=== PATIENT | female | born 1995 | race Caucasian/White ===

== ENCOUNTER → 2018-08-31 14:45 | Outpatient (CLI) | payer BC, SELFPAY ==
[2018-08-31 16:59] LABS: HCG Quantitative /Beta subunit 4859.5 mIU/mL
== END ==
PROVIDERS: Visit Provider Obstetrics & Gynecology
DX: N91.2 Amenorrhea, unspecified (principal)
CPT/HCPCS: 36415; 84702

== ENCOUNTER 2018-09-03 23:35 | Observation (INO) | payer BC, SELFPAY ==
--- NOTE | 2018-09-03 23:50 | ED.FEMALEGU ---
HPI - Female Genitourinary General Chief complaint: OB/Uterine Contractions Stated complaint: CRAMPING X3 WEEKS Time Seen by Provider: 09/03/18 23:50 Source: patient Mode of arrival: ambulatory Limitations: no limitations History of Present Illness HPI Narrative: 23-year-old female, at 4 weeks presents with significant other and chief complaint of 2 hr of severe pelvic pain earlier tonight. She denies any vaginal bleeding, dysuria or other vaginal discharge. She felt dizzy and lightheaded when the pain was severe but is now essentially at baseline. She denies nausea, vomiting or diarrhea. HCG a few days ago was 4800. Related Data Home Medications Medication Instructions Recorded Confirmed No Known Home Medications 09/04/18 09/04/18 Review of Systems Review of Systems All systems reviewed & are unremarkable except as noted in HPI and below Constitutional Denies chills, Denies fever(s), Denies lethargy and Denies weakness Eyes Denies change in vision, Denies eye discharge, Denies irritation and Denies loss of vision ENT Ears, Nose, Mouth, and Throat: Denies change in voice, Denies neck pain and Denies sore throat Cardiovascular Denies chest pain, Denies irregular heart rhythm, Denies lightheadedness, Denies palpitations, Denies dyspnea, Denies dyspnea on exertion and Denies orthopnea Respiratory Denies cough, Denies dyspnea, Denies dyspnea on exertion and Denies wheezing Gastrointestinal Gastrointestinal: Denies abdominal pain, Denies change in bowel habits, Denies diarrhea, Denies nausea and Denies vomiting Genitourinary Denies hematuria, Denies flank pain, Denies urinary incontinence and Denies urinary urgency Musculoskeletal Denies neck pain Integumentary/Breasts Denies pruritus, Denies erythema, Denies rash and Denies wounds Neurologic Denies confusion, Denies loss of vision and Denies weakness Psychiatric Denies anxiety, Denies confusion, Denies depression, Denies homicidal ideation and Denies suicidal ideation Endocrine Denies palpitations Hematologic/Lymphatic Denies easy bruising Allergic/Immunologic Denies wheezing PFSH Social History Smoking Status: Never smoker Exam Narrative Exam Narrative: GENERAL: This is a well-nourished, well-developed patient, in mild distress. HEAD: Atraumatic. Normocephalic. No temporal or scalp tenderness. EYES: Pupils equal round and reactive. Extraocular motions intact. No scleral icterus. No injection or drainage. ENT: Nose without bleeding, purulent drainage or septal hematoma. Throat without erythema, tonsillar hypertrophy or exudate. Uvula midline. Airway patent. NECK: Trachea midline. No JVD or lymphadenopathy. Supple, nontender, no meningeal signs. CARDIOVASCULAR: Regular rate and rhythm without murmurs, gallops, or rubs. RESPIRATORY: Clear to auscultation. Breath sounds equal bilaterally. No wheezes, rales, or rhonchi. GASTROINTESTINAL: Abdomen soft, non-tender, nondistended. No hepato-splenomegaly, or palpable masses. No guarding. EXTREMITIES: No clubbing, cyanosis, or edema. No joint tenderness, effusion, or edema noted. BACK: Nontender without deformity or crepitance. No flank tenderness. NEURO: AOx3. SKIN: No rash or erythema. Initial Vital Signs Initial Vital Signs: Vital Signs Temperature 98.4 F 09/03/18 23:59 Pulse Rate 73 09/03/18 23:59 Respiratory Rate 15 09/03/18 23:59 Blood Pressure 121/61 09/03/18 23:59 Pulse Oximetry 100 09/03/18 23:59 Course Orders Ordered: ED Orders 09/03/18 23:56 Complete Blood Count AUTO DIFF Stat Comprehensive Metabolic Panel Stat Test Serum,Qual Stat 09/03/18 23:57 US pelvic complete Stat 09/04/18 00:20 HCG Quantitative Stat 09/04/18 00:30 Type and Screen Stat Consultations Consultation #1: call to Dr. Godwin (supersonic engineer OB) to discuss case. She consults with Dr. Donovan whom recommends admission and repeat H/H. Dr. Godwin suggests patient be admitted to OBS and Dr. Rai's service. No IV fluids ordered. Vital Signs - 8 hr 09/03/18 23:59 09/04/18 02:41 Temperature 98.4 F Pulse Rate 73 96 H Respiratory Rate 15 16 Blood Pressure 121/61 Blood Pressure [Left Arm] 122/70 Pulse Oximetry 100 98 MDM - Female Genitourinary Differential Diagnosis Likely ovarian cyst and ruptured ovarian cyst Lab Data Result diagrams: 09/04/18 00:30 09/04/18 00:30 Lab Results 09/04/18 09/04/1809/04/18 Range/Units 00:20 00:30 00:30 WBC 12.1 H (4.5-11.0) X10^3/uL RBC 4.25 (4.0-5.2) X10^6/uL Hgb 13.1 (12.0-16.0) g/dL Hct 37.0 (36-46) % MCV 87.1 (80-100) fL MCH 30.8 (26-34) PG MCHC 35.3 (30-36) % RDW 12.6 (11.6-14.8) % Plt Count 329 (150-400) X10^3/uL Neut % (Auto) 80.9 H (50-75) % Lymph % (Auto) 12.1 L (25-40) % [place] % (Auto) 6.1 (3-14) % Eos % (Auto) 0.3 L (2-4) % Baso % (Auto) 0.6 (0-2) % Neut # (Auto) 9800 H (7611-5596) /uL Sodium 142 (137-145) mmol/L Potassium 3.7 (3.4-5.1) mmol/L Chloride 105 (98-107) mmol/L Carbon Dioxide 22 (22-32) mmol/L BUN 14 (7-17) mg/dL Creatinine 0.70 (0.52-1.04) mg/dL Estimated GFR > 60.0 (>60) mL/min BUN/Creatinine Ratio 20.0 (6-22) Glucose 105 H (70-100) mg/dL Calcium 9.4 (8.4-10.2) mg/dL Total Bilirubin 0.2 (0.2-1.3) mg/dL AST 17 (14-36) IU/L ALT 24 (9-52) IU/L Alkaline Phosphatase 55 (38-126) U/L Total Protein 7.7 (6.3-8.2) g/dL Albumin 4.8 (3.5-5.0) g/dL Globulin 2.9 (1.7-4.1) g/dL Albumin/Globulin Ratio 1.7 (1.0-2.8) HCG, Quant 4207.4 mIU/mL Serum , Qual (Negative) Blood Type Antibody Screen 09/04/18 09/04/18 Range/Units 00:30 00:30 WBC (4.5-11.0) X10^3/uL RBC (4.0-5.2) X10^6/uL Hgb (12.0-16.0) g/dL Hct (36-46) % MCV (80-100) fL MCH (26-34) PG MCHC (30-36) % RDW (11.6-14.8) % Plt Count (150-400) X10^3/uL Neut % (Auto) (50-75) % Lymph % (Auto) (25-40) % [place] % (Auto) (3-14) % Eos % (Auto) (2-4) % Baso % (Auto) (0-2) % Neut # (Auto) (9566-6585) /uL Sodium (137-145) mmol/L Potassium (3.4-5.1) mmol/L Chloride (98-107) mmol/L Carbon Dioxide (22-32) mmol/L BUN (7-17) mg/dL Creatinine (0.52-1.04) mg/dL Estimated GFR (>60) mL/min BUN/Creatinine Ratio (6-22) Glucose (70-100) mg/dL Calcium (8.4-10.2) mg/dL Total Bilirubin (0.2-1.3) mg/dL AST (14-36) IU/L ALT (9-52) IU/L Alkaline Phosphatase (38-126) U/L Total Protein (6.3-8.2) g/dL Albumin (3.5-5.0) g/dL Globulin (1.7-4.1) g/dL Albumin/Globulin Ratio (1.0-2.8) HCG, Quant mIU/mL Serum , Qual Positive H (Negative) Blood Type A Negative Antibody Screen Negative Point of Care Testing Test Results Positive Urine Dip Bedside Urine Glucose Negative Bedside Urine Bilirubin - Negative Bedside Urine Ketone - Negative Urine Specific [place] 1.015 Bedside Urine Occult Blood - Negative Bedside Urine pH 6.0 Bedside Urine Protein - Negative Bedside Urine Urobilinogen - Negative Bedside Urine Nitrite - Negative Bedside Urine Leukocytes - Negative Esterase Imaging Data US - abdomen: Radiologist's impression: suspect moderate amount of blood in cul-de-sac and adnexa greater on R than L. No IUP noted. Findings suggest ectopic until proven otherwise Discharge Plan Departure Patient Disposition: Admitted as Observation Clinical Impression: Pelvic pain, Admit Date/Time: 09/04/18 02:47 Admit Provider: Flora Donovan
--- NOTE | 2018-09-03 23:57 | DI.US.S_ITS ---
PROCEDURE: US PELVIC COMPLETE INDICATIONS: , pelvic pain TECHNIQUE: Real-time scanning was performed of the pelvic organs, with image documentation. Additional endovaginal scanning was necessary due to incomplete visualization of the adnexal and endometrial structures by transabdominal scanning. COMPARISON: None. FINDINGS: Transabdominal scanning: Limited scanning through the kidneys shows no hydronephrosis. Endovaginal scanning: Moderate echogenic free fluid within the cul-de-sac and within the bilateral adnexal regions. Uterus: Uterus is normal in size at 9.0 x 3.0 x 5.2 cm. The endometrium measures 11 mm in combined thickness. No intrauterine Ovaries: Ruptured right ovarian cyst measuring 20 mm. Left ovary within normal limits. Left adnexa not well-seen. IMPRESSION: 1. Moderate echogenic free fluid within the pelvis, indicating hemorrhage. 2. No intrauterine ; ectopic may be present. 3. Concordant with preliminary interpretation. Dictated by: Carlito Kirk M.D. on 09/04/2018 at 9:51 Approved by: Carlito Kirk M.D. on 09/04/2018 at 10:02
[2018-09-03 23:59] VITALS: BP 121/61; PULSE 73; RESP 15; TEMP 36.9; O2SAT 100; BMI 22.1
[2018-09-04] VITALS (16 sets, daily range): BP systolic 98–134; BP diastolic 53–76; PULSE 41–119; RESP 11–22; TEMP 36.3–37.1; O2SAT 94–100; BMI 22.1
--- NOTE | 2018-09-04 | PATH_ITS ---
[facility] Accession Number: [id number] . 01 Material submitted: . PART A: PERITONEAL BIOPSY PART B: PRODUCTS OF CONCEPTION . 01 Clinical history: . B: POSSIBLE PRODUCTS OF CONCEPTION . 02 Diagnosis: A. Peritoneum, Biopsy: Endometriosis. No evidence of malignancy. . B. Products of Conception: Few chorionic villi present. . MRV/09/08/2018 . 02 Electronically signed: . Figueroa Berger MD, PhD, Pathologist NPI- [id number] . 01 Gross description: . Received two formalin-filled containers, both labeled with the patient's name: . A. In a container labeled peritoneal, the specimen consists of a 0.9 x 0.8 x 0.5 cm, light yellow-mckeon portion of tissue, which is inked, trisected, and totally submitted in cassette A. B. In a container labeled possible products of conception, the specimen consists of multiple fragments of red-brown tissue and clotted blood which aggregate to 1.3 x 1.0 x 0.3 cm. The specimen is entirely submitted in cassette B. No grossly recognizable parts are observed. (DC:[id number]) /FRR . 02 Microscopic: . A. Sections are of peritoneal wall expanded by cystic structures with a columnar variably ciliated epithelium. The underlying stroma is compatible with endometrial stroma. To further evaluate the cystic structures, a CD10 immuonstain is performed, which is strongly and diffusely positive in the stromal component, consistent with endometriosis. . * This test was developed and its performance characteristics determined by [facility]. It has not been cleared or approved by the U.S. Food and Drug Administration. The FDA has determined that such clearance or approval is not necessary. This test is used for clinical purposes. It should not be regarded as investigational or for research. . 02 Pathologist provided ICD-10: N80.9 . 02 CPT . 354120, 829793, [id number] Performed at: 01 [facility] [address] [place] [address], [place], [place] [id number] MD Rusty Castro MD Phone: [phone] Performed at: 02 [facility] [id number] [place], [place] [id number] MD Nicole Simmons MD Phone: [phone]
--- NOTE | 2018-09-04 00:16 | ED_ITS ---
HPI - Female Genitourinary General Chief complaint: OB/Uterine Contractions Stated complaint: CRAMPING X3 WEEKS Time Seen by Provider: 09/03/18 23:50 Source: patient Mode of arrival: ambulatory Limitations: no limitations History of Present Illness HPI Narrative: 23-year-old female, at 4 weeks presents with significant other and chief complaint of 2 hr of severe pelvic pain earlier tonight. She denies any vaginal bleeding, dysuria or other vaginal discharge. She felt dizzy and lightheaded when the pain was severe but is now essentially at baseline. She denies nausea, vomiting or diarrhea. HCG a few days ago was 4800. Related Data Home Medications Medication Instructions Recorded Confirmed No Known Home Medications 09/04/18 09/04/18 Review of Systems Review of Systems All systems reviewed & are unremarkable except as noted in HPI and below Constitutional Denies chills, Denies fever(s), Denies lethargy and Denies weakness Eyes Denies change in vision, Denies eye discharge, Denies irritation and Denies loss of vision ENT Ears, Nose, Mouth, and Throat: Denies change in voice, Denies neck pain and Denies sore throat Cardiovascular Denies chest pain, Denies irregular heart rhythm, Denies lightheadedness, Denies palpitations, Denies dyspnea, Denies dyspnea on exertion and Denies orthopnea Respiratory Denies cough, Denies dyspnea, Denies dyspnea on exertion and Denies wheezing Gastrointestinal Gastrointestinal: Denies abdominal pain, Denies change in bowel habits, Denies diarrhea, Denies nausea and Denies vomiting Genitourinary Denies hematuria, Denies flank pain, Denies urinary incontinence and Denies urinary urgency Musculoskeletal Denies neck pain Integumentary/Breasts Denies pruritus, Denies erythema, Denies rash and Denies wounds Neurologic Denies confusion, Denies loss of vision and Denies weakness Psychiatric Denies anxiety, Denies confusion, Denies depression, Denies homicidal ideation and Denies suicidal ideation Endocrine Denies palpitations Hematologic/Lymphatic Denies easy bruising Allergic/Immunologic Denies wheezing PFSH Social History Smoking Status: Never smoker Exam Narrative Exam Narrative: GENERAL: This is a well-nourished, well-developed patient, in mild distress. HEAD: Atraumatic. Normocephalic. No temporal or scalp tenderness. EYES: Pupils equal round and reactive. Extraocular motions intact. No scleral icterus. No injection or drainage. ENT: Nose without bleeding, purulent drainage or septal hematoma. Throat without erythema, tonsillar hypertrophy or exudate. Uvula midline. Airway patent. NECK: Trachea midline. No JVD or lymphadenopathy. Supple, nontender, no meningeal signs. CARDIOVASCULAR: Regular rate and rhythm without murmurs, gallops, or rubs. RESPIRATORY: Clear to auscultation. Breath sounds equal bilaterally. No wheezes , rales, or rhonchi. GASTROINTESTINAL: Abdomen soft, non-tender, nondistended. No hepato-splenomegaly , or palpable masses. No guarding. EXTREMITIES: No clubbing, cyanosis, or edema. No joint tenderness, effusion, or edema noted. BACK: Nontender without deformity or crepitance. No flank tenderness. NEURO: AOx3. SKIN: No rash or erythema. Initial Vital Signs Initial Vital Signs: Vital Signs Temperature 98.4 F 09/03/18 23:59 Pulse Rate 73 09/03/18 23:59 Respiratory Rate 15 09/03/18 23:59 Blood Pressure 121/61 09/03/18 23:59 Pulse Oximetry 100 09/03/18 23:59 Course Orders Ordered: ED Orders 09/03/18 23:56 Complete Blood Count AUTO DIFF Stat Comprehensive Metabolic Panel Stat Test Serum,Qual Stat 09/03/18 23:57 US pelvic complete Stat 09/04/18 00:20 HCG Quantitative Stat 09/04/18 00:30 Type and Screen Stat Consultations Consultation #1: call to Dr. Godwin (transcriptionist OB) to discuss case. She consults with Dr. Donovan whom recommends admission and repeat H/H. Dr. Godwin suggests patient be admitted to OBS and Dr. Rai's service. No IV fluids ordered. Vital Signs - 8 hr 09/03/18 23:59 09/04/18 02:41 Temperature 98.4 F Pulse Rate 73 96 H Respiratory Rate 15 16 Blood Pressure 121/61 Blood Pressure [Left Arm] 122/70 Pulse Oximetry 100 98 MDM - Female Genitourinary Differential Diagnosis Likely ovarian cyst and ruptured ovarian cyst Lab Data Result diagrams: 09/04/18 00:30 09/04/18 00:30 Lab Results 09/04/18 09/04/1809/04/18 Range/Units 00:20 00:30 00:30 WBC 12.1 H (4.5-11.0) X10^3/uL RBC 4.25 (4.0-5.2) X10^6/uL Hgb 13.1 (12.0-16.0) g/dL Hct 37.0 (36-46) % MCV 87.1 (80-100) fL MCH 30.8 (26-34) PG MCHC 35.3 (30-36) % RDW 12.6 (11.6-14.8) % Plt Count 329 (150-400) X10^3/uL Neut % (Auto) 80.9 H (50-75) % Lymph % (Auto) 12.1 L (25-40) % [place] % (Auto) 6.1 (3-14) % Eos % (Auto) 0.3 L (2-4) % Baso % (Auto) 0.6 (0-2) % Neut # (Auto) 9800 H (9107-3635) /uL Sodium 142 (137-145) mmol/L Potassium 3.7 (3.4-5.1) mmol/L Chloride 105 (98-107) mmol/L Carbon Dioxide 22 (22-32) mmol/L BUN 14 (7-17) mg/dL Creatinine 0.70 (0.52-1.04) mg/dL Estimated GFR > 60.0 (>60) mL/min BUN/Creatinine Ratio 20.0 (6-22) Glucose 105 H (70-100) mg/dL Calcium 9.4 (8.4-10.2) mg/dL Total Bilirubin 0.2 (0.2-1.3) mg/dL AST 17 (14-36) IU/L ALT 24 (9-52) IU/L Alkaline Phosphatase 55 (38-126) U/L Total Protein 7.7 (6.3-8.2) g/dL Albumin 4.8 (3.5-5.0) g/dL Globulin 2.9 (1.7-4.1) g/dL Albumin/Globulin Ratio 1.7 (1.0-2.8) HCG, Quant 4207.4 mIU/mL Serum , Qual (Negative) Blood Type Antibody Screen 09/04/18 09/04/18 Range/Units 00:30 00:30 WBC (4.5-11.0) X10^3/uL RBC (4.0-5.2) X10^6/uL Hgb (12.0-16.0) g/dL Hct (36-46) % MCV (80-100) fL MCH (26-34) PG MCHC (30-36) % RDW (11.6-14.8) % Plt Count (150-400) X10^3/uL Neut % (Auto) (50-75) % Lymph % (Auto) (25-40) % [place] % (Auto) (3-14) % Eos % (Auto) (2-4) % Baso % (Auto) (0-2) % Neut # (Auto) (7775-7987) /uL Sodium (137-145) mmol/L Potassium (3.4-5.1) mmol/L Chloride (98-107) mmol/L Carbon Dioxide (22-32) mmol/L BUN (7-17) mg/dL Creatinine (0.52-1.04) mg/dL Estimated GFR (>60) mL/min BUN/Creatinine Ratio (6-22) Glucose (70-100) mg/dL Calcium (8.4-10.2) mg/dL Total Bilirubin (0.2-1.3) mg/dL AST (14-36) IU/L ALT (9-52) IU/L Alkaline Phosphatase (38-126) U/L Total Protein (6.3-8.2) g/dL Albumin (3.5-5.0) g/dL Globulin (1.7-4.1) g/dL Albumin/Globulin Ratio (1.0-2.8) HCG, Quant mIU/mL Serum , Qual Positive H (Negative) Blood Type A Negative Antibody Screen Negative Point of Care Testing Test Results Positive Urine Dip Bedside Urine Glucose Negative Bedside Urine Bilirubin - Negative Bedside Urine Ketone - Negative Urine Specific [place] 1.015 Bedside Urine Occult Blood - Negative Bedside Urine pH 6.0 Bedside Urine Protein - Negative Bedside Urine Urobilinogen - Negative Bedside Urine Nitrite - Negative Bedside Urine Leukocytes - Negative Esterase Imaging Data US - abdomen: Radiologist's impression: suspect moderate amount of blood in cul-de-sac and adnexa greater on R than L. No IUP noted. Findings suggest ectopic until proven otherwise Discharge Plan Departure Patient Disposition: Admitted as Observation Clinical Impression: Pelvic pain, Admit Date/Time: 09/04/18 02:47 Admit Provider: Flora Donovan
[2018-09-04 00:46] LABS: Add Manual Diff / Slide Review NO; Basophils Percent Auto 0.6 % (0-2); Eosinophils Percent Auto 0.3 % (2-4); Hemoglobin 13.1 g/dL (12.0-16.0); Lymphocytes Percent Auto 12.1 % (25-40); Mean Corpuscular HGB Conc 35.3 % (30-36); Mean Corpuscular Hemoglobin 30.8 PG (26-34); Mean Corpuscular Volume 87.1 fL (80-100); Monocytes Percent Auto 6.1 % (3-14); Neutrophils Absolute Auto 9800 /uL (3000-5900); Neutrophils Percent Auto 80.9 % (50-75); Platelet Count 329 X10^3/uL (150-400); Red Blood Cell Count 4.25 X10^6/uL (4.0-5.2); Red Cell Distribution Width 12.6 % (11.6-14.8); White Blood Cell Count 12.1 X10^3/uL (4.5-11.0)
[2018-09-04 00:51] LABS: Pregnancy Test Serum,Qual Positive (Negative)
[2018-09-04 00:55] LABS: Alanine Aminotransferase 24 IU/L (9-52); Albumin 4.8 g/dL (3.5-5.0); Albumin Globulin Ratio 1.7 (1.0-2.8); Alkaline Phosphatase 55 U/L (38-126); Aspartate Aminotransferase 17 IU/L (14-36); Bilirubin Total 0.2 mg/dL (0.2-1.3); Blood Urea Nitrogen 14 mg/dL (7-17); Calcium 9.4 mg/dL (8.4-10.2); Carbon Dioxide 22 mmol/L (22-32); Chloride 105 mmol/L (98-107); Estimated Glomerular Filt Rate > 60.0 mL/min (>60); Globulin 2.9 g/dL (1.7-4.1); Glucose 105 mg/dL (70-100); HEMOLYSIS < 15 (0-50); Potassium 3.7 mmol/L (3.4-5.1); Sodium 142 mmol/L (137-145); Total Protein 7.7 g/dL (6.3-8.2)
[2018-09-04 01:56] LABS: HCG Quantitative /Beta subunit 4207.4 mIU/mL
[2018-09-04] MEDS: HYDROMORPHONE 2 MG INJ 1 MG IV (04:54)
[2018-09-04 05:47] LABS: Hemoglobin 12.2 g/dL (12.0-16.0)
[2018-09-04] MEDS: HYDROMORPHONE 0.5 MG INJ IV (05:57)
--- NOTE | 2018-09-04 08:44 | PM.GYNHP.1 ---
History of Present Illness Reason for admission: ectopic Narrative: Seema Smalls is a 23 year old female With sudden onset of pelvic pain and a starting on 09/03/2018. Prior to the ER visit she had been having some spotting and cramping so had a HCG level drawn that was 4800. With onset of of the pain she presented to the emergency room where she had a HCG level that had decreased to 4200 and ultrasound that did not show a in the uterus, did not show a specific ectopic but free fluid in the pelvis suspicious for internal bleeding. FOR[facility]LY [facility], [facility] Medical History [place] teeth extracted (Acute) Surgical History History of tonsillectomy (Acute) Social History household members: significant other Smoking Status: Never smoker Meds Home Medications Medication Instructions Recorded Confirmed Type No Known Home Medications 09/04/18 09/04/18 History Allergies Allergy/AdvReac Type Severity Reaction Status Date / Time amoxicillin [From Augmentin] Allergy Severe Difficulty Verified 09/04/18 04:33 Breathing clavulanic acid Allergy Severe Difficulty Verified 09/04/18 04:33 [From Augmentin] Breathing codeine Allergy Severe severe Verified 09/04/18 05:04 migraines doxycycline Allergy Severe Difficulty Verified 09/04/18 04:33 Breathing minocycline Allergy Severe Difficulty Verified 09/04/18 04:33 Breathing Penicillins Allergy Severe Difficulty Verified 09/04/18 04:33 Breathing Review of Systems Review of Systems Patient denies any vaginal bleeding. She has severe lower abdominal pain. All systems reviewed & are unremarkable except as noted in HPI and below Exam Vital Signs (past 8 hours): - 09/04/18 02:41 09/04/18 03:45 09/04/18 08:30 Temperature 98.7 F 98.8 F Pulse Rate 96 H 82 78 Respiratory Rate 16 16 16 Blood Pressure 123/66 120/58 L Blood Pressure [Left Arm] 122/70 Pulse Oximetry 98 99 98 Oxygen Delivery Method Room Air Oxygen Flow Rate 0 Narrative Exam Narrative: HEENT exam within normal limits. Lungs are clear to auscultation and percussion. Heart is regular rate and rhythm no S3-S4 or murmurs. Abdomen is soft, with diffuse tenderness more in the lower abdomen. Pelvic exam was not performed. Extremities without edema and nontender. Objective Imaging US - abdomen: Radiologist's impression: No intrauterine gestation. No obvious ectopic . Free fluid in the pelvis. Labs Result Diagrams: 09/04/18 05:21 09/04/18 00:30 Labs: Laboratory Results - last 24 hr 09/04/18 09/04/18 09/04/18 00:20 00:30 00:30 WBC 12.1 H RBC 4.25 Hgb 13.1 Hct 37.0 MCV 87.1 MCH 30.8 MCHC 35.3 RDW 12.6 Plt Count 329 Neut % (Auto) 80.9 H Lymph % (Auto) 12.1 L [place] % (Auto) 6.1 Eos % (Auto) 0.3 L Baso % (Auto) 0.6 Neut # (Auto) 9800 H Sodium 142 Potassium 3.7 Chloride 105 Carbon Dioxide 22 BUN 14 Creatinine 0.70 Estimated GFR > 60.0 BUN/Creatinine Ratio 20.0 Glucose 105 H Calcium 9.4 Total Bilirubin 0.2 AST 17 ALT 24 Alkaline Phosphatase 55 Total Protein 7.7 Albumin 4.8 Globulin 2.9 Albumin/Globulin Ratio 1.7 HCG, Quant 4207.4 Serum , Qual Blood Type Antibody Screen 09/04/18 09/04/18 09/04/18 00:30 00:30 05:21 WBC RBC Hgb 12.2 Hct 34.0 L MCV MCH MCHC RDW Plt Count Neut % (Auto) Lymph % (Auto) [place] % (Auto) Eos % (Auto) Baso % (Auto) Neut # (Auto) Sodium Potassium Chloride Carbon Dioxide BUN Creatinine Estimated GFR BUN/Creatinine Ratio Glucose Calcium Total Bilirubin AST ALT Alkaline Phosphatase Total Protein Albumin Globulin Albumin/Globulin Ratio HCG, Quant Serum , Qual Positive H Blood Type A Negative Antibody Screen Negative Assessment & Plan (1) Pelvic pain: Current visit: Yes Status: Acute (2) : Qualifiers: Weeks of gestation: unspecified Qualified Code(s): Z34.90 - Encounter for supervision of normal , unspecified, unspecified trimester Current visit: Yes Status: Acute Plan: Assessment/Plan Narrative: Patient with possible ectopic . Discussed options with the patient including monitoring, methotrexate, laparoscopic treatment. Patient does not wish to wait to see if her values decrease on their own or treatment with methotrexate if possible. She is aware that an ectopic may not be found on laparoscopy In which case she may eventually need methotrexate. She is aware that removal of the blood may improve her symptoms. Discussed the 25% risk of recurring ectopic with any treatment of ectopic that retains her fallopian tube Such as salpingostomy or methotrexate. Removal of her fallopian tube will slightly decrease her risk of fertility. The risks of laparoscopy were discussed with the patient including damage to bowel, bladder, ureters that may require opening abdomen to repair. There is minimal risk of infection.There is a possibility we may not find the ectopic . Consent form was signed. Patient will be discharged after the procedure. Time Spent With Patient Time with patient: 25 - 35 minutes Quality VTE Deep Vein Thrombosis/Pulmonary Embolism Present on Admission: No
[2018-09-04] MEDS: LACTATED RINGERS 1,000 ML 100 ML IV (09:11)
--- NOTE | 2018-09-04 10:07 | PC.NURSE ---
Day shift: Pt off unit at this time 1000. Surgery. Return ETA 1200. Pt's has all valuables from room.
--- NOTE | 2018-09-04 10:54 | PM.PREOP ---
Pre-operative Note Interval Note Pre-op Check: Yes History & Physical exam performed today by Physician Changes: No
[2018-09-04] MEDS: RHO(D) IMMUNE GLOBULIN 1,500 UNIT SYRINGE 1500 UNIT IM (11:20)
[2018-09-04] MEDS: BUPIVACAINE 0.5% W/ EPI (PF) VIAL 30 ML INJ (11:25)
[2018-09-04] MEDS: METHYLENE BLUE 50 MG/10 ML VIAL 70 MG INJ (11:48)
--- NOTE | 2018-09-04 12:02 | SUR.HOLD ---
Was unable to complete OPD hold prior to receiving PACU patient. Report given to BLUEPRINT ENGINEER and anesthesia. Belly ring removed by patient and given to SO. States that she didn't know how to remove her nose piercings. Dr Leong aware, ok'd leaving them in. RN also made aware. ICU informed that patient would be off tele in the OR.
--- NOTE | 2018-09-04 12:09 | PM.OP.1 ---
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 Closure Type: primary Specimen(s): other ( tissue being extruded from the left fallopian tube, peritoneal biopsies) Estimated Blood Loss (mL): 10 Blood products transfused: none Procedure in detail: Patient was brought to the operating room where she underwent general anesthesia. She was placed in low yellowfin stirrups and prepped and draped in usual sterile fashion. No antibiotics were indicated. Pulsatile stockings were in place and functional. Warming was with blankets. A single-tooth tenaculum was placed on the anterior lip of the cervix and the cervix dilated to #6 Hegar dilator. The Heaven uterine manipulator was placed and balloon inflated with 3 mL of air. The area of the incisions were injected with half percent Marcaine with epinephrine. An incision was made in the umbilicus with a scalpel and the Verres needle placed in the abdomen. Confirmation of correct placement of the needle was performed by withdrawing on the syringe and then allowing fluid to fall freely through the needle. The abdomen was insufflated to 4 L of CO2. A 5 mm trocar was placed under direct visualization. 2 other 5 mm trochars were placed in the right and left lower quadrant under direct visualization after incising the skin. There did not appear to be any damage with placement of the trocars. the tissue being extruded from the left fallopian tube was grasped and sent to pathology. The area of endometriosis in the left broad ligament was grasped and removed with scissors, bleeding controlled with cautery. Adequate hemostasis was noted. Methylene blue was placed through the HEAVEN to confirm patency of the fallopian tubes. The CO2 was allowed to escape from the abdomen. The trochars were removed. Skin was closed with 4-0 Monocryl. The patient went to recovery room in good condition. Complications: none Condition: stable Disposition: same day surgery Plan for aftercare: home when awake and stable, patient will need to be monitored for fall of HCG to 0, will discuss treatment for endometriosis at her postop appointment
[2018-09-04] MEDS: fentaNYL 100 MCG/2 ML INJ 50 MCG IV (12:21)
[2018-09-04] MEDS: MEPERIDINE 50 MG/ML 25 MG IV (12:26)
--- NOTE | 2018-09-04 12:36 | SUR.PHASEI ---
1214 Aroused spontaneously, denies pain/nausea. Resp unlabored, skin warm and dry. 1221 C/O pain & is shaking. Rx given for pain first as ordered. 1230 Shaking subsided prior to completion of medication administration. Patient talking, drowsy, pain improved.
--- NOTE | 2018-09-04 12:39 | SUR.PHASEI ---
1237 SO to bedside, talking with patient. Sips of water given, tolerated well.
--- NOTE | 2018-09-04 12:40 | SUR.PHASEI ---
c/o dry lips, chap stick given
--- NOTE | 2018-09-04 13:06 | SUR.PHASEI ---
1249 To room 210, bed down and locked, call light within reach. Resp unlabored, skin warm and dry. C/o abdominal pain w/grimace. AC RN will obtain orders/medication. RN checked pain/bandaids. VSS. SO to bedside. Report given. No questioins.
[2018-09-04] MEDS: HYDROMORPHONE 1 MG INJ IV (13:17)
[2018-09-04] MEDS: diphenhydrAMINE 25 MG TABLET PO (13:23)
[2018-09-04] MEDS: HYDROCODONE/ACET 5/325 TABLET 2 TAB PO (13:23)
--- NOTE | 2018-09-04 15:00 | CM.DANOTE ---
DCP Assessment: Patient is a 23 yo female admitted for ectopic and underwent surgery today. Met with patient and at the bedside and role of d/c internet media planner explained. PCP: Not on file. Insurance: [facility] Out of [facility] Patient lives [place] with her . She is I at baseline. She does not identify any discharge needs. Plan: Discharge home with .
--- NOTE | 2018-09-04 19:35 | PC.NURSE ---
Lauren shift note: 1700. Patient awake and alert, pain control adequate with [place] PO. Abdominal band aides x 3 CDI. VSS and afebrile. Patient discharged home via private vehicle accompanied by significant other. Ambulatory in room, independent. Discussed importance of F/U in 1 week, pain control medication safety for home use, activity, and s/sx of infection. Patient verbalized understanding of instructions. SL discontinued.
== END 2018-09-04 17:00 | disposition home or self-care (01) ==
LOC: ED 09-04 02:41 → AC 09-04 02:49
PROVIDERS: Admitting Provider Specialist; Emergency Provider Emergency Medicine; Visit Provider Specialist
PROC: (CPT 59150; principal; 2018-09-04 11:00)
DX: O00.102 Left tubal pregnancy without intrauterine pregnancy (principal); R10.2 Pelvic and perineal pain; Z3A.01 Less than 8 weeks gestation of pregnancy; N80.8 Other endometriosis
CPT/HCPCS: 59150; 36415; 36591; 76830; 76856; 80053; 81003; 81025; 84702; 84703; 85014; 85018; 85025; 86850; 86900; 86901; 99282; 99284; G0378; J1100; J1170; J2175; J2405; J2704; J2790; J3010; Q9968

== ENCOUNTER → 2018-09-16 13:08 | Outpatient (CLI) | payer BC, SELFPAY ==
[2018-09-04 04:38] VITALS: BMI 22.1
[2018-09-16 14:26] LABS: HCG Quantitative /Beta subunit 17.28 mIU/mL
== END ==
PROVIDERS: Visit Provider Specialist
DX: O00.109 Unspecified tubal pregnancy without intrauterine pregnancy (principal)
CPT/HCPCS: 36415; 84702

== ENCOUNTER → 2018-09-30 13:52 | Outpatient (CLI) | payer BC, SELFPAY ==
[2018-09-04 04:38] VITALS: BMI 22.1
[2018-09-30 15:23] LABS: HCG Quantitative /Beta subunit < 2.39 mIU/mL
== END ==
PROVIDERS: Visit Provider Specialist
DX: O00.109 Unspecified tubal pregnancy without intrauterine pregnancy (principal)
CPT/HCPCS: 36415; 84702

== ENCOUNTER → 2019-02-04 11:19 | Outpatient (CLI) | payer BC, SELFPAY ==
[2018-09-04 04:38] VITALS: BMI 22.1
[2019-02-04 12:57] LABS: HCG Quantitative /Beta subunit 232.15 mIU/mL
== END ==
PROVIDERS: Visit Provider Specialist
DX: Z34.90 Encounter for supervision of normal pregnancy, unspecified, unspecified trimester (principal); Z3A.01 Less than 8 weeks gestation of pregnancy
CPT/HCPCS: 36415; 84702

== ENCOUNTER → 2019-02-06 11:23 | Outpatient (CLI) | payer BC, SELFPAY ==
[2018-09-04 04:38] VITALS: BMI 22.1
[2019-02-06 12:15] LABS: HCG Quantitative /Beta subunit 535.85 mIU/mL
== END ==
PROVIDERS: Visit Provider Specialist
DX: Z34.90 Encounter for supervision of normal pregnancy, unspecified, unspecified trimester (principal); Z3A.01 Less than 8 weeks gestation of pregnancy
CPT/HCPCS: 36415; 84702

== ENCOUNTER → 2019-03-07 11:49 | Outpatient (CLI) | payer BC, SELFPAY ==
[2018-09-04 04:38] VITALS: BMI 22.1
[2019-03-07 12:30] LABS: Appearance Urine UA CLEAR; Bilirubin Urine UA NEGATIVE (NEGATIVE); Color Urine UA YELLOW; Glucose Urine UA NEGATIVE (Negative); Ketones Urine UA NEGATIVE (NEGATIVE); Leukocyte Esterase Urine UA NEGATIVE (NEGATIVE); Nitrite Urine UA NEGATIVE (Negative); Occult Blood Urine UA TRACE-INTACT (Negative); Protein Urine UA NEGATIVE (Negative); Urobilinogen Urine UA 0.2 E.U./dL (0.2)
[2019-03-07 14:06] LABS: Add Manual Diff / Slide Review NO; Basophils Absolute Auto 0 /uL (0-100); Basophils Percent Auto 0.6 % (0-2); Eosinophils Absolute Auto 100 /uL (0-450); Hematocrit 38.6 % (36-46); Hemoglobin 13.3 g/dL (12.0-16.0); Lymphocytes Absolute Auto 1700 /uL (1100-4500); Lymphocytes Percent Auto 20.7 % (25-40); Mean Corpuscular HGB Conc 34.4 % (30-36); Mean Corpuscular Hemoglobin 30.5 PG (26-34); Mean Corpuscular Volume 88.5 fL (80-100); Monocytes Absolute Auto 600 /uL (0-900); Monocytes Percent Auto 7.7 % (3-14); Neutrophils Absolute Auto 5700 /uL (1500-7000); Platelet Count 301 X10^3/uL (150-400); Red Blood Cell Count 4.36 X10^6/uL (4.0-5.2); Red Cell Distribution Width 12.3 % (11.6-14.8); White Blood Cell Count 8.1 X10^3/uL (4.5-11.0)
[2019-03-07 17:55] LABS: Hepatitis B Surface Antigen NEGATIVE s/c (NEGATIVE)
[2019-03-07 18:13] LABS: HIV 1 and 2 Antibody NEGATIVE (NEGATIVE); Hep C Virus Ab w/Reflex Quant NEGATIVE s/c (NEGATIVE)
[2019-03-09 13:17] LABS: RPR Screen Nonreactive (Nonreactive)
== END ==
PROVIDERS: Visit Provider Specialist
DX: Z34.81 Encounter for supervision of other normal pregnancy, first trimester (principal); Z3A.01 Less than 8 weeks gestation of pregnancy
CPT/HCPCS: 36415; 80055; 81003; 86703; 86787; 86803; 86850; 86900; 86901; 87086

== ENCOUNTER → 2019-05-11 12:00 | Outpatient (CLI) | payer BC, SELFPAY ==
[2019-04-20 14:03] VITALS: BMI 22.1
[2019-05-15 15:24] LABS: B pertussis IGA 2 IU/mL; B pertussis IgG 18 IU/mL
[2019-05-17 12:14] LABS: AFP, Serum 52.6 ng/mL; Calc Gestational Age 17.6; Cigarette Smoker N; Donated Egg NOT GIVEN; Donor Egg Age NOT GIVEN; Estriol, Free 1.75 ng/mL; Inhibin A, Dimeric 74 pg/mL; Maternal Weight 162 lbs; Number of Fetuses 1; Previous Pregnancy Down Syndro NOT GIVEN; hCG, Serum 7.4 IU/mL
== END ==
PROVIDERS: Visit Provider Specialist
DX: R05 Cough (principal); Z34.02 Encounter for supervision of normal first pregnancy, second trimester; Z3A.17 17 weeks gestation of pregnancy
CPT/HCPCS: 36415; 82105; 82677; 84702; 86336; 86615

== ENCOUNTER → 2019-06-02 10:03 | Outpatient (CLI) | payer BC, SELFPAY ==
[2019-04-20 14:03] VITALS: BMI 22.1
--- NOTE | 2019-06-02 10:04 | DI.US.S_ITS ---
PROCEDURE: US OB >= 14 WEEKS FETUS INDICATIONS: ANATOMY OUTSIDE/PRIOR DATING DATA: Last menstrual period (LMP): 01/08/19. LMP-based estimated date of delivery (LAURYN): 10/15/19. First dating scan (date and location): 02/24/19. Estimated date of delivery (LAURYN) from first dating scan: 10/12/19. TECHNIQUE: Real-time scanning was performed of the fetus, with image documentation and biometric measurements. Endovaginal scanning: Not needed for this study. COMPARISON: [facility], , OB >= 14 WEEKS FETUS, 05/11/2019, 11:41. FINDINGS: General: A single living intrauterine gestation is present. Presentation: Vertex Placenta: Placental position is, anterior, without previa. Amniotic fluid index: 12.3 cm, normal range is 5-24 cm. heart rate: 153 beats per minute. Maternal cervical canal: The 3.0 cm long. Normal lower limit is 2.5 cm. biometrics: Biparietal diameter: 5.5 cm, 22 weeks 4 days Head circumference: 19.8 cm, 22 weeks 0 days Abdominal circumference: 17.8 cm, 22 weeks 5 days Femur length: 3.7 cm, 21 weeks 4 days Estimated gestational age from initial scan: 21 weeks 1 day Composite gestational age from present scan: 22 weeks 2 Estimated weight and percentile: 485 g, 93rd percentile Measurement variability for biometric dating: +/- 7 days from 14 weeks to 15 weeks 6 days gestation, +/- 10 days from 16 weeks to 21 weeks 6 days gestation, +/- 2 weeks from 22 weeks to 27 weeks 6 days gestation, +/- 3 weeks for 28 weeks gestation or later. weight reference: 4500 g or EFW >90/95% is considered macrosomia or large for gestational age. EFW <10% is small for gestational age. EFW 5% or less is considered intra-uterine growth restriction. Anatomic survey: Neuro: Ventricles are non-dilated at less than 10 mm. Cisterna magna is normal at 3-11 mm. Cerebellum is normal in size and morphology. Nuchal skin fold: Normal at less than 6 mm between 14-21 weeks gestational age. Face: Nose and lips, facial profile are not well seen due to positioning. Spine: No evidence for spina bifida. Heart: 4-chambered heart is present, with normal ventricular outflow tracts. Diaphragm: Diaphragm is intact. Stomach: Left-sided stomach is present. Kidneys: No hydronephrosis. Normal is less than 5 mm in 2nd trimester, less than 7 mm in 3rd trimester. Cord: 3-vessel cord has orthotopic insertion. Bladder: Normal in size. Extremities: All 4 extremities identified. IMPRESSION: Appropriate interval growth, no anomalies seen. The facial profile and nose/lips area was poorly seen due to positioning. Completion of the anatomic survey could be performed with followup ultrasound in approximately 2 weeks. Dictated by: Leroy Dunn M.D. on 06/02/2019 at 11:51 Approved by: Leroy Dunn M.D. on 06/02/2019 at 11:54
== END ==
PROVIDERS: Visit Provider Specialist
DX: Z34.02 Encounter for supervision of normal first pregnancy, second trimester (principal); Z3A.22 22 weeks gestation of pregnancy
CPT/HCPCS: 76811

== ENCOUNTER → 2019-07-03 13:46 | Outpatient (CLI) | payer BC, SELFPAY ==
[2019-04-20 14:03] VITALS: BMI 22.1
[2019-07-03 15:45] LABS: Hematocrit 34.4 % (36-46)
[2019-07-03 16:29] LABS: GTT (PREG) 1 Hour PP 50gm Dose 63 mg/dL (76-139)
== END ==
PROVIDERS: Visit Provider Specialist
DX: O26.899 Other specified pregnancy related conditions, unspecified trimester (principal); Z34.82 Encounter for supervision of other normal pregnancy, second trimester; Z3A.22 22 weeks gestation of pregnancy; Z67.91 Unspecified blood type, Rh negative
CPT/HCPCS: 36415; 82950; 85014; 85018; 86850

== ENCOUNTER → 2019-09-21 12:44 | Outpatient (CLI) | payer BC, MEDICAID, SELFPAY ==
[2019-04-20 14:03] VITALS: BMI 22.1
[2019-09-22 10:49] LABS: Strep Grp B PCR NEG for Grp B Strep
== END ==
PROVIDERS: Visit Provider Specialist
DX: Z34.93 Encounter for supervision of normal pregnancy, unspecified, third trimester (principal); Z3A.36 36 weeks gestation of pregnancy
CPT/HCPCS: 87653

== ENCOUNTER 2019-10-01 07:18 | Observation (INO) | payer BC, SELFPAY ==
[2019-04-20 14:03] VITALS: BMI 22.1
--- NOTE | 2019-10-01 10:48 | P.TNLD_ITS ---
Visit Information Visit Information Date of evaluation: 10/01/19 Primary OB Provider: Flora Donovan Reason for Evaluation: Yes rule out labor PFSH Medical History (Updated 10/01/19 @ 10:49 by Flora Donovan MD) Ectopic , tubal (Resolved ~09/2018) Pelvic peritoneal endometriosis (Inactive) Surgical History (Updated 09/04/18 @ 04:36 by Rhonda Mathis, JAYE) History of tonsillectomy (Acute) [place] teeth extracted (Acute) Social History household members: significant other Smoking Status: Never smoker Exam Vital Signs (past 8 hours): Blood pressure 122/71, pulse of 88, temperature 36.3? Evaluation Evaluation Baseline heart rate: 140 Variability: Moderate (11-25) monitor accelerations: Present monitor decelerations: Absent Contraction Frequency (minutes): 5 Uterine Contraction Intensity: Moderate Category of Tracing: I Cervical dilation (cm): 2 Cervical effacement (%): 60 station: -2 Diagnosis, Plan/Disposition Final Diagnosis (1) Premature uterine contractions in third trimester, antepartum: Current Visit: Yes Status: Acute Plan/Disposition Plan: Patient qi but no change in cervix likely prodromal labor. OB Disposition: home
[2019-10-01 11:15] VITALS: TEMP 36.4
[2019-10-01] MEDS: MEPERIDINE 50 MG/ML INJ IM (11:15)
== END 2019-10-01 11:30 | disposition home or self-care (01) ==
PROVIDERS: Admitting Provider Specialist; Visit Provider Specialist
DX: O46.93 Antepartum hemorrhage, unspecified, third trimester (principal); Z3A.38 38 weeks gestation of pregnancy; O47.03 False labor before 37 completed weeks of gestation, third trimester
CPT/HCPCS: G0378; G0379; J2175

== ENCOUNTER 2019-10-01 18:46 | Inpatient (IN) | payer BC, MEDICAID, SELFPAY ==
[2019-04-20 14:03] VITALS: BMI 22.1
[2019-10-01 18:55] VITALS: BP 122/71
--- NOTE | 2019-10-01 18:58 | PM.OBHP.1 ---
OB HPI Date/Time Date of admission: 10/01/19 Date Patient Seen: 10/01/19 Time Patient Seen: 19:02 History of Present Condition Chief complaint: eval of labor : 2 Para: 1 Estimated Date of Delivery: 10/15/19 Estimated Gestational Age (weeks): 38 Narrative: Seema Smalls is a 24 year old female in active labor History of Present care: good care, initiated at week # (11), number of visits (11) and pounds weight gain (54) Dating criteria: LMP confirmed by 1st trimester US Obstetrical complications: none Medical complications: none Preadmission Labs Blood type: A (-) negative -: Antibody screen: negative, GBS status: negative, HBsAG: negative, HIV: negative and RPR/VDLR: negative -: Chlamydia screen: not detected and Gonorrhea screen: not detected -: Rubella: immune and Varicella: immune HCAB: negative PAP: Abnormal (ASCUS with positive high-risk HPV) Quad screen: Normal 1 hr GTT: 63 Prior (ies) History: 09/04/2018 ectopic Evaluation Evaluation Baseline heart rate: 140 Variability: Moderate (11-25) monitor accelerations: Present monitor decelerations: Absent Contraction Frequency (minutes): 3 Uterine Contraction Intensity: Strong/Firm Category of Tracing: I Cervical dilation (cm): 6 Cervical effacement (%): 100 station: 0 PFSH Medical History (Updated 10/01/19 @ 10:49 by Flora Donovan MD) Ectopic , tubal (Resolved ~09/2018) Pelvic peritoneal endometriosis (Inactive) Surgical History (Updated 09/04/18 @ 04:36 by Rhonda Mathis RN) History of tonsillectomy (Acute) [place] teeth extracted (Acute) Social History household members: significant other Smoking Status: Never smoker Meds Home Medications and Allergies Home Medications Medication Instructions Recorded Confirmed Type folic acid 400 mcg tablet 0.4 mg PO DAILY 03/07/19 03/07/19 History mecobalamin (vitamin B12) 1,000 1,000 mcg SL DAILY 03/07/19 03/07/19 History mcg disintegrating tablet,sublingual prenat.vits,jose c,fig-fhfu-euvgy 1 tab PO DAILY 03/07/19 03/07/19 History albuterol sulfate 90 mcg/actuation 1 puff INHALATION Q6H PRN #8.5 gram 05/11/19 Rx aerosol inhaler breast pump #1 each 08/02/19 08/02/19 Rx Allergies Allergy/AdvReac Type Severity Reaction Status Date / Time amoxicillin [From Augmentin] Allergy Severe Difficulty Verified 02/24/19 09:28 Breathing clavulanic acid Allergy Severe Difficulty Verified 02/24/19 09:28 [From Augmentin] Breathing codeine Allergy Severe severe Verified 02/24/19 09:28 migraines doxycycline Allergy Severe Difficulty Verified 02/24/19 09:28 Breathing minocycline Allergy Severe Difficulty Verified 02/24/19 09:28 Breathing Penicillins Allergy Severe Difficulty Verified 02/24/19 09:28 Breathing Review of Systems Review of Systems Narrative: Patient had possible leakage of fluid. Good movement. No signs or symptoms of preeclampsia. ROS Unobtainable: All systems reviewed & are unremarkable except as noted in HPI and below Exam Vital Signs (past 8 hours): Blood pressure 142/71, pulse of 112, temperature 35.9? Narrative Exam Narrative: HEENT exam within normal limits. Lungs are clear to auscultation percussion. Heart is regular rate and rhythm no S3-S4 or murmurs. Abdomen is soft, nontender. is vertex. Extremities without edema and nontender Assessment and Plan Assessment and Plan Assessment and Plan narrative: 38 week gestation in active labor. Anticipate vaginal delivery.
[2019-10-01 19:25] LABS: Add Manual Diff / Slide Review NO; Basophils Absolute Auto 100 /uL (0-100); Basophils Percent Auto 0.7 % (0-2); Eosinophils Absolute Auto 100 /uL (0-450); Eosinophils Percent Auto 0.4 % (2-4); Hematocrit 36.9 % (36-46); Hemoglobin 12.7 g/dL (12.0-16.0); Lymphocytes Absolute Auto 2200 /uL (1100-4500); Lymphocytes Percent Auto 15.9 % (25-40); Mean Corpuscular HGB Conc 34.5 % (30-36); Mean Corpuscular Hemoglobin 30.4 PG (26-34); Monocytes Absolute Auto 1200 /uL (0-900); Monocytes Percent Auto 8.7 % (3-14); Neutrophils Absolute Auto 10100 /uL (1500-7000); Neutrophils Percent Auto 74.3 % (50-75); Platelet Count 263 X10^3/uL (150-400); Red Blood Cell Count 4.19 X10^6/uL (4.0-5.2); Red Cell Distribution Width 13.6 % (11.6-14.8); White Blood Cell Count 13.6 X10^3/uL (4.5-11.0)
[2019-10-01] MEDS: OXYTOCIN 10 UNIT/ML VIAL IM (22:06)
--- NOTE | 2019-10-01 22:35 | PM.OBPRVD ---
Labor & Delivery Delivery date: 10/01/19 Intrapartal events: None Induction method: none Delivery monitor: external FHT and external uterine Route of delivery: L&D Laceration Description: None Estimated blood loss (mL): 200 Anesthesia type: None Narrative: Patient arrived on Labor and delivery in active labor. heart tones category 1 to category 2 throughout labor. Patient had a spontaneous vaginal delivery over an intact perineum. The viable male was placed on maternal abdomen. After cord stopped pulsating the cord was clamped, cut, and cord bloods obtained. There were no cervical, vaginal, or perineal tears. Both mother doing well. [place] Baby 1: Infant gender: Male Presentation: vertex position: Right Occiput Anterior Placenta delivery description: Spontaneous cord vessel description: 3 Vessels score (1 min): 8 score (5 min): 9 Plan for aftercare: Routine post vaginal delivery
[2019-10-01] MEDS: KETOROLAC 30 MG/ML VIAL IV (23:07)
[2019-10-02] MEDS: DERMOPLAST SPRAY 20% 60 ML 1 SPRAY TOP (00:39)
[2019-10-02] MEDS: KETOROLAC 30 MG/ML VIAL IV ×3 (05:02→19:02)
[2019-10-02] MEDS: LANOLIN OINT 7 GM 1 APPLIC TOP (05:03)
[2019-10-02 06:47] LABS: Hematocrit 30.9 % (36-46); Hemoglobin 10.5 g/dL (12.0-16.0)
[2019-10-02] MEDS: DOCUSATE 250 MG CAPSULE PO (10:03)
--- NOTE | 2019-10-02 17:09 | PM.OBPN.1 ---
Subjective - OB Subjective Patient comments: no complaints and tolerating diet [place] baby status: doing well and nursing well feeding status: exclusively breast feeding Date Patient Seen: 10/02/19 Time Patient Seen: 12:30 Interval history: Patient is just over 12 hours doing well Exam Vital Signs (past 8 hours): Blood pressure 125/66, pulse of 85, temperature 97.8? Narrative Exam Narrative: Abdomen is soft, nontender. Uterus is firm, at U, nontender. Mild lochia. Extremities without edema and nontender Objective Labs Result Diagrams: 10/02/19 06:30 Labs: Laboratory Results - last 24 hr 10/01/19 10/01/19 10/02/19 19:20 19:20 06:30 WBC 13.6 H RBC 4.19 Hgb 12.7 10.5 L Hct 36.9 30.9 L MCV 88.0 MCH 30.4 MCHC 34.5 RDW 13.6 Plt Count 263 Neut % (Auto) 74.3 Lymph % (Auto) 15.9 L [place] % (Auto) 8.7 Eos % (Auto) 0.4 L Baso % (Auto) 0.7 Neut # (Auto) 32569 H Lymph # (Auto) 2200 [place]ruff # (Auto) 1200 H Eos # (Auto) 100 Baso # (Auto) 100 Blood Type A Negative Antibody Screen Positive Antibody Identification Anti-D Maternal Bleed 10/02/19 06:30 WBC RBC Hgb Hct MCV MCH MCHC RDW Plt Count Neut % (Auto) Lymph % (Auto) [place] % (Auto) Eos % (Auto) Baso % (Auto) Neut # (Auto) Lymph # (Auto) Woodruff # (Auto) Eos # (Auto) Baso # (Auto) Blood Type Antibody Screen Antibody Identification Maternal Bleed Negative Assessment & Plan Assessment and Plan (1) Vaginal delivery: Status: Acute Assessment and plan: day 1. Doing well. Routine care. Current Visit: Yes Plan day: 1 plan OB: routine care Time Spent With Patient Time: Total time spent is greater than 50% in coordination of care (as documented) at patient's floor/unit and/or counseling patient: Time with patient: less than 15 minutes
[2019-10-03] MEDS: IBUPROFEN 600 MG TABLET PO ×2 (01:36→08:01)
[2019-10-03] MEDS: RHO(D) IMMUNE GLOBULIN 1,500 UNIT SYRINGE 1500 UNIT IM (03:56)
[2019-10-03] MEDS: DOCUSATE 250 MG CAPSULE PO (08:00)
--- NOTE | 2019-10-03 09:19 | PM.OBDS.1 ---
Discharge Providers Provider Date of admission: 10/01/19 18:46 Discharge Date: 10/03/19 Consults: 10/01/19 19:13 Consult to Anesthesiology Urgent Comment: Consulting Provider: Anesthesiologist Reason for consultation: Epidural Has provider been notified: No 10/02/19 22:32 Consult to Income Tax Administrator Routine Comment: Discharge provider: Flora Donovan MD Summary Hospital Course Date Patient Seen: 10/03/19 Time Patient Seen: 09:33 Hospital Course: Patient arrived on Labor and delivery in active labor. She had a spontaneous vaginal delivery. She had a first-degree vaginal tear that was repaired. She did well . She denies any headaches, scotomata, epigastric pain. She is urinating well. She is ambulatory. Peripartum Data Delivery Method: Natural Vaginal Laceration description: Vaginal - 1st Degree Procedures: Vaginal delivery and first-degree vaginal tear repair complications: none 1: Gender: Male Disposition of : home Discharge Diagnosis (1) Vaginal delivery: Status: Acute Status at Discharge Cognitive/behavioral status at discharge: oriented Functional status at discharge: independent ambulation Overall status at discharge: patient is progressing back to baseline Time Spent with Patient Time attestation: Total time spent providing and/or coordinating discharge services: Time spent: Less than 30 minutes Objective Labs Result Diagrams: 10/02/19 06:30 Exam Vital Signs (past 8 hours): Blood pressure 127/72, pulse of 91, temperature 97.6? Narrative Exam Narrative: Abdomen is soft, nontender. Uterus is firm, at U, nontender. Extremities without edema and nontender. Patient is a negative and received RhoGAM, she is rubella immune and received Tdap in the 3rd trimester Discharge Plan Discharge Plan Patient Disposition: Home Discharge orders & Medications Prescriptions: Continued albuterol sulfate 90 mcg/actuation HFA aerosol inhaler 1 puff INHALATION Q6H PRN (Reason: shortness of breath or wheezing) Qty: 8.5 RF: 0 prenat.vits,jose c,qfq-wyaa-xzhbv tablet 1 tab PO DAILY RF: 0 folic acid 400 mcg tablet 0.4 mg PO DAILY RF: 0 mecobalamin (vitamin B12) 1,000 mcg tablet,disintegrating 1,000 mcg SL DAILY RF: 0 (DME) breast pump [Pump In Style Advanced] Device See Rx Instructions .ROUTE .MEDSUPPLY Qty: 1 RF: 0 Follow up/Referrals: Flora Donovan MD [Physician] - 1 Month Diet/Activity/Treatments Diet: Regular Activity: Nothing in vagina for 4 weeks Skin/Wound/Dressing Care Report to your healthcare provider any signs of infection, such as:: chills, fever and increased pain
[2019-10-03 09:43] VITALS: BP 127/72; PULSE 91; RESP 18; TEMP 36.4
== END 2019-10-03 11:40 | disposition home or self-care (01) | DRG 807 ==
PROVIDERS: Admitting Provider Specialist; Visit Provider Specialist
DX: O80 Encounter for full-term uncomplicated delivery (principal); Z37.0 Single live birth; Z3A.38 38 weeks gestation of pregnancy
CPT/HCPCS: 36415; 59050; 59400; 85014; 85018; 85025; 85461; 86850; 86870; 86900; 86901; G0378; G0379; J1885; J2175; J2590; J2790

== ENCOUNTER → 2019-10-05 13:48 | Outpatient (CLI) | payer BC, OTHER, SELFPAY ==
[2019-04-20 14:03] VITALS: BMI 22.1
--- NOTE | 2019-10-05 13:50 | DI.US.S_ITS ---
PROCEDURE: US PERIPH VENOUS LOW EXTREM RT INDICATIONS: POSSIBLE DVT TECHNIQUE: Real-time imaging, as well as color and pulse Doppler interrogation, were performed of the lower extremity deep veins from the inguinal ligament to the popliteal fossa. COMPARISON: None. FINDINGS: The common femoral, femoral and popliteal veins are normally compressible, and free of intraluminal thrombus. Color and pulse Doppler demonstrate normal phasic intraluminal flow. There is normal augmentation response to distal compression maneuver. IMPRESSION: No deep venous thrombosis. Dictated by: Ursula Hawkins M.D. on 10/05/2019 at 15:12 Approved by: Ursula Hawkins M.D. on 10/05/2019 at 15:12
== END ==
PROVIDERS: PCP Specialist; Visit Provider Specialist
DX: M25.471 Effusion, right ankle (principal); M79.89 Other specified soft tissue disorders
CPT/HCPCS: 93971

== ENCOUNTER → 2021-09-18 09:24 | Outpatient (CLI) | payer OTHER, MEDICAID, SELFPAY ==
[2019-04-20 14:03] VITALS: BMI 22.1
[2021-09-18 10:06] LABS: COVID19 -Nasal RAPID Negative (Negative)
== END ==
PROVIDERS: Visit Provider Physician Assistant
DX: Z20.822 Contact with and (suspected) exposure to COVID-19 (principal); J02.9 Acute pharyngitis, unspecified
CPT/HCPCS: 87070; 87635; 87880

== ENCOUNTER → 2021-12-26 13:00 | Outpatient (CLI) | payer OTHER, MEDICAID, SELFPAY ==
[2019-04-20 14:03] VITALS: BMI 22.1
[2021-12-26 15:10] LABS: Free T4, Direct Thyroxine 1.24 ng/dL (0.78-2.19)
[2021-12-26 15:24] LABS: Thyroid Stimulating Hormone 1.69 uIU/mL (0.47-4.68)
[2021-12-26 16:50] LABS: Vitamin D 25 Hydroxy (D3) 50.3 ng/mL (30.0-100.0)
== END ==
PROVIDERS: PCP Advanced Practice Midwife; Referring Provider Advanced Practice Midwife; Visit Provider Advanced Practice Midwife
DX: N97.9 Female infertility, unspecified (principal)
CPT/HCPCS: 36415; 82306; 84144; 84439; 84443

== ENCOUNTER → 2022-01-22 10:44 | Outpatient (CLI) | payer OTHER, MEDICAID, SELFPAY ==
[2019-04-20 14:03] VITALS: BMI 22.1
== END ==
PROVIDERS: PCP Advanced Practice Midwife; Referring Provider Advanced Practice Midwife; Visit Provider Advanced Practice Midwife
DX: N97.9 Female infertility, unspecified (principal)
CPT/HCPCS: 36415; 83036

== ENCOUNTER → 2024-02-08 14:37 | Outpatient (CLI) | payer OTHER, MEDICAID, SELFPAY ==
[2019-04-20 14:03] VITALS: BMI 22.1
--- NOTE | 2024-02-08 14:39 | DI.RAD.S_ITS ---
PROCEDURE: XR CHEST 2V INDICATIONS: Cough x 3 weeks worsening TECHNIQUE: 2 views of the chest were acquired. COMPARISON: None. FINDINGS: Surgical changes and devices: None. Lungs and pleura: Lungs are clear. No pleural effusions or pneumothorax. Mediastinum: Mediastinal contours are normal. Heart size is normal. Bones and chest wall: No suspicious bony abnormalities. Soft tissues appear unremarkable. IMPRESSION: No acute cardiopulmonary abnormalities or focal airspace disease. Dictated by: Johann Solis M.D. on 02/08/2024 at 16:07 Approved by: Johann Solis M.D. on 02/08/2024 at 16:07
== END ==
PROVIDERS: PCP Advanced Practice Midwife; Referring Provider Physician Assistant; Visit Provider Physician Assistant
DX: J40 Bronchitis, not specified as acute or chronic (principal)
CPT/HCPCS: 71046